=== PATIENT | male | born 1980 | race Caucasian/White ===

== ENCOUNTER 2021-02-18 10:50 | Day surgery (SDCO) | payer MEDICARE, OTHER ==
[~2021-02-18 10:50] MED LIST: DIGITEK250 MCG PO; ENALAPRIL PO; ZOCOR10 MG PO
[2021-02-18 11:49] LABS: BASOPHIL 0.9 % (0-2); EOSINOPHIL 1.9 % (0-5); HGB 15.2 g/dl (13.2-18.0); LYMPHOCYTE 16.2 % (15-48); MCH 29.3 pg (25.0-31.0); MCHC 33.8 g/dL (32.0-36.0); MCV 86.7 fL (78.0-100.0); MONOCYTE 10.9 % (0-12); MPV 11.3 fL (6.0-9.5); NEUTROPHIL 69.7 % (41-80); NRBC 0; PLT 176 K/uL (150-400); RBC 5.19 M/uL (4.70-6.00); RDW 13.4 % (11.5-14.0); WBC 7.5 K/uL (4.0-10.5)
[2021-02-18 12:15] LABS: ALBUMIN 3.9 g/dL (3.4-5.0); BILIRUBIN - TOTAL 0.7 mg/dL (0.2-1.0); BUN/CREAT RATIO (CALC) 10.8 RATIO; CREATININE 1.2 mg/dL (0.67-1.17); GLOBULIN (CALCULATION) 3.1 g/dL; POTASSIUM 4.3 mmol/L (3.5-5.1)
[2021-02-18 12:23] LABS: CKMB 3.4 ng/mL (0.0-3.6)
[2021-02-18] MEDS ORDERED: ENALAPRIL MALEA20 MG PO (14:16)
[2021-02-19 05:38] LABS: EOSINOPHIL 2.1 % (0-5); HCT 45.8 % (42.0-52.0); HGB 15.5 g/dl (13.2-18.0); LYMPHOCYTE 17.3 % (15-48); MCH 29.6 pg (25.0-31.0); MCHC 33.8 g/dL (32.0-36.0); MCV 87.6 fL (78.0-100.0); MONOCYTE 13.2 % (0-12); MPV 11.3 fL (6.0-9.5); NRBC 0; PLT 168 K/uL (150-400); RBC 5.23 M/uL (4.70-6.00); RDW 13.6 % (11.5-14.0)
[2021-02-19 06:12] LABS: BUN/CREAT RATIO (CALC) 7.6 RATIO; CREATININE 1.31 mg/dL (0.67-1.17); POTASSIUM 4.9 mmol/L (3.5-5.1)
--- NOTE | 2021-02-19 08:00 | NUR ---
02/19/21 0800 PT NEEDED EDUCATION ON WHY HE IS STAYING ANOTHER NIGHT IN THE HOSPITAL. PT NEEDS MULTIPLE TEST RUN. PT WAS CRYING AND ANGRY THREATENING TO SIGN OUT AMA AND LEAVE. PT WAS REDIRECTED AND VERBALIZED UNDERSTANDING ON CONDITION AND THAT THE DR WOULD REEVAULATE AFTER ECHO. 02/19/21 1400 MD INFORMED PT THAT HE WOULD INDEED BE STAYING ANOTHER NIGHT AND NOT PT IS VISIBLY UPSET, CRYING, AND REFUSING TO WEAR HIS BOILING OFF WINDER. PT WAS INSTRUCTED TO PUT MONITOR BACK ON. MD WAS NOTIFIED.
--- NOTE | 2021-02-19 12:34 | NUR ---
02/19/21 A Social Work referral was received due to patient not being able to afford his medications. An assessment was conducted at bedside. His mother was present for the interview with Mr. Figueredo's permission. Mr. Figueredo lives alone. 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 Mr. Figueredo is supported [facility]. It was learned that Mr. Figueredo receives "Extra Help" through [employer]. However, he has not been presenting the voucher to the Pharmacies. - Dr. Ruano learned that the discharging medications are on [employer]'s $10.00 list. - Mr. Figueredo was provided with a written list of questions to ask [employer]. He was also advised to contact the [facility] for assistance in getting enrolled in a Medicare D plan. - Patient was provided with a smoking cessation educational booklet. Mr. Figueredo voiced his intention of not smoking in the future.
[2021-02-20] MEDS ORDERED: ZOCOR10 MG PO (11:24)
[2021-02-20] MEDS ORDERED: ENALAPRIL MALEA20 MG PO (11:24)
[2021-02-20] MEDS ORDERED: DIGITEK250 MCG PO (11:24)
== END 2021-02-20 12:36 | disposition home or self-care (01) ==
LOC: FER 10:50 → FTCU 12:51
PROVIDERS: Emergency Medicine; ADMIT Internal Medicine
DX: R07.9 Chest pain, unspecified (principal); R77.8 Other specified abnormalities of plasma proteins; I11.0 Hypertensive heart disease with heart failure; I50.9 Heart failure, unspecified; E78.5 Hyperlipidemia, unspecified; F17.219 Nicotine dependence, cigarettes, with unspecified nicotine-induced disorders; E11.9 Type 2 diabetes mellitus without complications; Z20.822 Contact with and (suspected) exposure to COVID-19; Z79.899 Other long term (current) drug therapy; Z82.49 Family history of ischemic heart disease and other diseases of the circulatory system
CPT/HCPCS: 36415; 71046; 80048; 80053; 82553; 84484; 85025; 93005; G0378; J1650; U0002